=== PATIENT | male | born 1980 | race Caucasian/White ===

== ENCOUNTER 2018-09-22 06:18 | Day surgery (SDC) | payer OTHER ==
[2018-09-22] MEDS ORDERED: LACTATED RINGERS 1,000 ML IV ONE (07:09)
[2018-09-22] MEDS ORDERED: ENOXAPARIN SODIUM 40 MG/0.4 ML DISP.SYRIN SQ ONE ×2 (07:09→08:48)
[2018-09-22] MEDS ORDERED: FAMOTIDINE 20 MG/2 ML VIAL ONE ×2 (07:11→08:48)
[2018-09-22 08:16] LABS: BASOPHILS % 0.4 (0.0-1.5); EOSINOPHILS % 1.7 % (0.0-6.8); MEAN CORPUSCULAR HEMOGLOBIN 28.6 pg (28.0-34.0); MONOCYTES % 5.3 % (0.0-11.0); NEUTROPHILS # 4.5 # k/uL (1.4-7.7)
[2018-09-22 08:42] LABS: eGFR (Non-African) > 60
[2018-09-22] MEDS ORDERED: SUGAMMADEX SODIUM 200 MG/2 ML VIAL IV ONE (08:48)
[2018-09-22] MEDS ORDERED: DEXAMETHASONE SODIUM PHOSPHATE 10 MG/ML VIAL ONE (08:48)
[2018-09-22] MEDS ORDERED: PHENYLEPHRINE HCL 10 MG/1 ML ONE (08:48)
[2018-09-22] MEDS ORDERED: SUCCINYLCHOLINE CHLORIDE 20 MG/ML 10ML VIAL ONE (08:48)
[2018-09-22] MEDS ORDERED: PROPOFOL 200 MG/20 ML VIAL IV ONE (08:48)
[2018-09-22] MEDS ORDERED: FENTANYL CITRATE/PF 250 MCG/5 ML INJ. ONE (08:48)
[2018-09-22] MEDS ORDERED: LIDOCAINE HCL 2% PF 100MG/5ML VIAL IJ ONE (08:48)
[2018-09-22] MEDS ORDERED: ROCURONIUM BROMIDE 10 MG/ML 5ML VIAL ONE (08:48)
[2018-09-22] MEDS ORDERED: KETOROLAC TROMETHAMINE 30 MG/1ML VIAL ONE (08:48)
[2018-09-22] MEDS ORDERED: SEVOFLURANE 250 ML LIQUID IH ONE (08:48)
[2018-09-22] MEDS ORDERED: fentaNYL CITRATE/PF 100 MCG/2 ML INJ. ONE ×2 (08:48→11:09)
[2018-09-22] MEDS ORDERED: ONDANSETRON HCL/PF 4 MG/ 2ML VIAL ONE ×3 (08:48→11:28)
[2018-09-22] MEDS ORDERED: CLINDAMYCIN PHOSPHATE 900 MG/6 ML VIAL ONE (08:48)
[2018-09-22] MEDS ORDERED: MIDAZOLAM HCL 2 MG/2 ML VIAL ONE (08:48)
[2018-09-22] MEDS ORDERED: LACTATED RINGERS 1,000 ML IV.SOLN IV ONE ×2 (08:48)
== END 2018-09-22 11:49 | disposition other institution (70) ==
LOC: OPSURG 06:18
PROVIDERS: ATTEND Surgery
DX: E66.01 Morbid (severe) obesity due to excess calories (principal); Z68.44 Body mass index [BMI] 60.0-69.9, adult; E11.9 Type 2 diabetes mellitus without complications; I10 Essential (primary) hypertension; G47.33 Obstructive sleep apnea (adult) (pediatric); E78.2 Mixed hyperlipidemia; Z79.4 Long term (current) use of insulin; Z79.01 Long term (current) use of anticoagulants
CPT/HCPCS: 36415; 43235; 43775; 80048; 85025; 85610; J0330; J1650; J1885; J2001; J2250; J2370; J2405; J2704; J3010; J7120; S0028; J2307

== ENCOUNTER 2018-09-22 11:50 | Inpatient (IN) | payer OTHER ==
[2018-09-22] MEDS ORDERED: OXYCODONE HCL 5 MG/5 ML SOLN UD CUP PO PRN (11:58)
[2018-09-22] MEDS ORDERED: MORPHINE SULFATE 4 MG/ML VIAL IVP PRN (11:58)
--- NOTE | 2018-09-22 12:22 | History and Physical Report ---
History of Present Illnes - History of Present Illness Reason for Visit: S/P Gastric Sleeve History of Present Illness: Patient is a 38-year-old male whom is morbidly obese and has struggled with his weight for most of his adult years. Patient was evaluated by cardiology and was found to have some inferior ischemia on stress testing. He underwent left heart catheterization which was normal and stress test was a false positive. Cardiology gave the ok to continue with surgery. He was also on Xarelto for a DVT 2 years ago and has been substituting with Lovenox for present surgery. Patient and surgeon decided to proceed with gastric sleeve procedure. Procedure went well without complications- patient will be admitted and monitored s/p surgical intervention. - Past Medical History Cardiac: HTN Pulmonary: Sleep Apnea Gastrointestinal: GERD Heme/Onc: Other (Factor 5 deficiency, DVT) Endocrine: Diabetes, Hypothyroidism, obesity - Past Surgical History Past Surgical History: Other (Knee surgery and shoulder surgery) - Past Family History Mother Family History: Hypertension, Other (obese) Father Family History: Hypertension - Past Social History Smoke: No Alcohol: None Drugs: None Lives: With Family Domestic Violence: Negative - Health Maintenance Health Maintenance: Influenza Vaccine, Pneumococcal Vaccine Influenza Vaccine: Current for this Influenza Season Pneumonia Vaccine: Yes Resuscitation Status: Resusciation Status Resuscitation Status Full Code - Unable to Obtain History Unable to Obtain: No Review of Systems - Review of Systems Constitutional: negative: Fever, Chills Eyes: negative: pain, vision change ENT: negative: Ear Pain, Nose Pain, Throat Pain Respiratory: negative: Cough, Shortness of Breath Cardiovascular: negative: Chest Pain, Light Headedness Gastrointestinal: Nausea (moderate), Abdominal Pain (minimal abd. pain). negative: Vomiting Genitourinary: negative: Dysuria Musculoskeletal: negative: Shoulder Pain, Back Pain Skin: negative: Rash Neurological: negative: Weakness, Confusion - Medications/Allergies Allergies/Adverse Reactions: Allergies Allergy/AdvReac Type Severity Reaction Status Date / Time Penicillins Allergy Verified 09/22/18 11:58 Home Medications: Home Medications Atorvastatin Calcium 10 mg PO D 09/22/18 Enoxaparin Sodium [Lovenox] 60 mg SQ Q12 09/22/18 Furosemide [Lasix] 40 mg PO DAILY 09/22/18 Levothyroxine Sodium 75 mcg PO D 09/22/18 Lisinopril [Zestril] 40 mg PO D 09/22/18 Metformin HCl 1,000 mg PO D 09/22/18 Rivaroxaban [Xarelto] 20 mg PO D 09/22/18 Semaglutide [Ozempic] 0.25 mg SQ WEEKLY AT 1600 09/22/18 amLODIPine BESYLATE [Norvasc] 5 mg PO D 09/22/18 Current Inpatient Medications: Current Inpatient Medications Enoxaparin Sodium (Lovenox) 40 mg SQ QD [facility] Stop: 10/07/18 11:59 Famotidine (Pepcid) 20 mg IVP BID [facility] Stop: 09/26/18 20:59 Promethazine HCl 25 mg/ Sodium (Chloride) 51 mls @ 200 mls/hr IV Q6 PRN PRN Reason: Nausea / Vomiting Stop: 09/26/18 11:57 Sodium Chloride (Normal Saline) 1,000 mls @ 150 mls/hr IV Q8H [facility] Clindamycin Phosphate 600 mg/ (PREMIX BAG) 50 mls @ 50 mls/hr IV Q8H [facility] Stop: 09/23/18 01:59 Ketorolac Tromethamine (Toradol) 30 mg IVP Q6 PRN PRN Reason: For Mild Pain Stop: 09/26/18 11:57 Miscellaneous (Chem Sticks) 1 each MC Q6H [facility] Morphine Sulfate (Morphine Sulfate) 2 mg IVP Q2 PRN PRN Reason: Mod.Pain-If unable to take PO Stop: 09/26/18 11:57 Ondansetron HCl (Zofran 4 Mg/2 Ml) 4 mg IVP Q6H PRN PRN Reason: Nausea / Vomiting Stop: 09/26/18 11:57 Oxycodone HCl (Oxycodone Soln) 5 mg PO Q6H PRN PRN Reason: Pain 5-7 Exam - Exam Vital Signs: Vital Signs (72 hours) 09/22/18 11:52 Temperature 97.2 F L Pulse Rate [ 89 Left] Respiratory 18 Rate Blood Pressure 138/83 [Right Arm] O2 Sat by Pulse 93 Oximetry General: Alert, Oriented to Person, Oriented to Place, Oriented to Time, Mild distress (due to nausea), Morbidly Obese HEENT: Atraumatic, PERRLA, Mouth Mucous membr. moist/Point Place, Nose Mucous membr. moist/[place] Place Neck: Normal Range of Motion Carotids: No Bruit Lungs: Clear to auscultation, Normal air movement Cardiovascular: Regular rate, Normal S1, Normal S2 Abdomen: Soft, Decreased Bowel Sounds Integumentary: Normal, Point Place, Warm, Dry, Other (incisions intact/dry) Extremities: Normal pulses, No tenderness/swelling Neurological: Strength Equal Bilat, Normal tone, Sensation intact Psych/Mental Status: Mental status NL, Mood NL, Appropriate Affect Assessment/Plan - Assessment/Plan (1) S/P gastric surgery Status: Acute Current Visit: Yes Assessment: Incisions are without redness/erythema, legs are without tenderness/pain, LCTA Plan: Will monitor incision sites, patient will be placed on Lovenox daily, frequent ambulation and SCDs while in bed, patient will use incentive spirometer to prevent resp. infections, will start PPI, and will give IVFs until patient can tolerate PO (2) Morbid obesity Status: Acute Current Visit: Yes Assessment: S/p gastric sleeve (3) Hypertension Status: Acute Current Visit: Yes Qualifiers: Hypertension type: essential hypertension Qualified Code(s): I10 - Essential (primary) hypertension Assessment: Will monitor blood pressures closely Plan: Will monitor blood pressures closely and introduce medications back as needed (4) Type 2 diabetes mellitus Status: Acute Current Visit: Yes Qualifiers: Diabetes mellitus watermelon inspector insulin use: with retirement use Diabetes mellitus complication status: with hyperglycemia Qualified Code(s): E11.65 - Type 2 diabetes mellitus with hyperglycemia; 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 Assessment: Will check blood sugars regularly and monitor for sx's of hypo/hyperglycemia Plan: Will administer diabetic meds as needed (5) DVT (deep venous thrombosis) Status: Acute Current Visit: Yes Qualifiers: DVT location: lower extremity Assessment: DVT was 2 years ago and has been on xarelto- pt has been using Lovenox prior to surgery Plan: Will continue lovenox, frequent ambulation, and SCDs while in bed (6) GERD (gastroesophageal reflux disease) Status: Acute Current Visit: Yes Qualifiers: Esophagitis presence: without esophagitis Qualified Code(s): K21.9 - Gastro-esophageal reflux disease without esophagitis Assessment: stable on home meds Plan: Will give Pepcid IV BID (7) Hypothyroid Status: Acute Current Visit: Yes Assessment: Stable on home medications Plan: Will hold medication at this time and introduce medication as needed VTE Assessment - RISK FACTOR SCORE VTE RISK FACTOR SCORES: AGE 40-60 YEARS, OBESITY, MAJOR SURGERY/ANESTHESIA TIME > 1 HOUR, OTHER (DVT 2 years ago) - RISK VTE HIGH RISK: SCORE OF 3-4 (RISK PROXIMAL DVT 4-8%) PROPHYLAXIS NEEDED (Lovenox daily, frequent ambulation, sCDs while in bed)
[2018-09-22] MEDS: 0.9 % SODIUM CHLORIDE 1,000 ML IV SCH ×2 (12:24→19:30)
[2018-09-22] MEDS ORDERED: 0.9 % SODIUM CHLORIDE 50 ML IV ONE ×2 (13:16→20:41)
[2018-09-22] MEDS ORDERED: PROMETHAZINE HCL 25 MG/ML VIAL ONE (13:16)
[2018-09-22] MEDS: PROMETHAZINE HCL 25 MG in 0.9 % SODIUM CHLORIDE 50 ML IV PRN ×2 (13:22→22:38)
[2018-09-22 13:39] VITALS: BMI 65.4
[2018-09-22] MEDS: ONDANSETRON HCL/PF 4 MG/ 2ML VIAL IVP PRN (17:11)
[2018-09-22] MEDS: KETOROLAC TROMETHAMINE 30 MG/1ML VIAL IVP PRN (17:14)
[2018-09-22] MEDS: CLINDAMYCIN PHOSPHATE/D5W 600 MG in PREMIX BAG 1 BAG IV SCH (17:26)
[2018-09-22] MEDS ORDERED: CLINDAMYCIN PHOSPHATE/D5W 50 ML IV ONE (20:40)
[2018-09-22] MEDS: FAMOTIDINE 20 MG/2 ML VIAL IVP SCH (21:30)
[2018-09-23] MEDS: CLINDAMYCIN PHOSPHATE/D5W 600 MG in PREMIX BAG 1 BAG IV SCH (00:10)
[2018-09-23] MEDS: 0.9 % SODIUM CHLORIDE 1,000 ML IV SCH ×3 (02:40→22:20)
[2018-09-23] MEDS: ONDANSETRON HCL/PF 4 MG/ 2ML VIAL IVP PRN ×2 (08:34→18:20)
[2018-09-23] MEDS: FAMOTIDINE 20 MG/2 ML VIAL IVP SCH ×2 (08:37→21:29)
--- NOTE | 2018-09-23 09:56 | Inpatient Progress Note ---
Subjective - Required Recertification Statement I anticipate X number of days because-include discharge plan: 1 - Review of Systems Subjective: Patient feels ok. Drank an orange soda and got some pain in LUQ. Better now. Passing gas. Objective - Exam Vitals and I&O: Vital Signs Temp 97.8 F 09/23/18 09:07 Pulse 73 09/23/18 09:07 Resp 18 09/23/18 09:07 BP 156/82 09/23/18 09:07 Pulse Ox 97 09/23/18 09:07 Intake & Output 09/22/18 09/22/18 09/23/18 11:59 23:59 11:59 Intake Total 1090 270 Output Total 300 500 Balance 790 -230 Weight 200.9 kg 200.9 kg Intake: IV 1000 150 Right Hand 1000 150 Oral 90 120 Output: Urine 300 500 Other: Voiding Method Toilet Toilet # Voids 1 0 General: Alert, Oriented to Person, Oriented to Place, Oriented to Time, Cooperative Lungs: Clear to auscultation, Normal air movement, Speaks full Sentences Cardiovascular: Regular rate Abdomen: Normal bowel sounds, Soft, No tenderness, Other (Minimal old blood on bandage in LUQ.) Assessment/Plan - Assessment/Plan (1) H/O deep venous thrombosis Status: Acute Current Visit: Yes Plan: Patient has a h/o Factor V Leiden. Will increase the lovenox to preop dose of 60 mg bid - lower dose due to risk of bleeding. SCD's. Ambulation. Restart xarelto as outpatient. IF patient has lovenox left at home he should use it until gone then restart xarelto. (2) Factor 5 Leiden mutation, heterozygous Status: Acute Current Visit: Yes (3) Hypertension Status: Acute Current Visit: Yes Qualifiers: Hypertension type: essential hypertension Qualified Code(s): I10 - Essential (primary) hypertension (4) Hypothyroid Status: Acute Current Visit: Yes Qualifiers: Hypothyroidism type: unspecified Qualified Code(s): E03.9 - Hypothyroidism, unspecified Plan: REstart levothyroxine tomorrow. 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 Will likely be able to d/c off this med with close follow up.
[2018-09-23] MEDS ORDERED: ENOXAPARIN SODIUM 40 MG/0.4 ML DISP.SYRIN SQ SCH (12:00)
[2018-09-23] MEDS: ENOXAPARIN SODIUM 60 MG/0.6 ML DISP.SYRIN SQ SCH ×2 (12:48→21:28)
[2018-09-23] MEDS: KETOROLAC TROMETHAMINE 30 MG/1ML VIAL IVP PRN (18:20)
[2018-09-24] MEDS: 0.9 % SODIUM CHLORIDE 1,000 ML IV SCH ×2 (04:35→15:17)
[2018-09-24 06:34] VITALS: BP 143/57
[2018-09-24] MEDS ORDERED: LEVOTHYROXINE SODIUM 25 MCG TABLET PO SCH (07:00)
--- NOTE | 2018-09-24 09:04 | Discharge Summary ---
Discharge Summary - Discharge Sumary History of Present Illness: Patient is a 38-year-old male whom is morbidly obese and has struggled with his weight for most of his adult years. Patient was evaluated by cardiology and was found to have some inferior ischemia on stress testing. He underwent left heart catheterization which was normal and stress test was a false positive. Cardiology gave the ok to continue with surgery. He was also on Xarelto for a DVT 2 years ago and has been substituting with Lovenox for present surgery. Patient and surgeon decided to proceed with gastric sleeve procedure. Condition at Discharge: Stable Home Medications: Ambulatory Orders Medication Instructions Recorded Atorvastatin Calcium 10 mg PO D 09/22/18 Enoxaparin Sodium [Lovenox] 60 mg SQ Q12 09/22/18 Furosemide [Lasix] 40 mg PO DAILY 09/22/18 Levothyroxine Sodium 75 mcg PO D 09/22/18 Lisinopril [Zestril] 40 mg PO D 09/22/18 Metformin HCl 1,000 mg PO D 09/22/18 Rivaroxaban [Xarelto] 20 mg PO D 09/22/18 Semaglutide [Ozempic] 0.25 mg SQ WEEKLY AT 1600 09/22/18 amLODIPine BESYLATE [Norvasc] 5 mg PO D 09/22/18 Consultations this Visit: None Procedures this Visit: Other (Gastric Sleeve) Allergies/Adverse Reactions: Allergies Allergy/AdvReac Type Severity Reaction Status Date / Time Penicillins Allergy Verified 09/22/18 11:58 Patient Problems: Current Active Problems Problem Status Onset DVT (deep venous thrombosis) Acute Factor 5 Leiden mutation, heterozygous Acute GERD (gastroesophageal reflux disease) Acute H/O deep venous thrombosis Acute Hypertension Acute Hypothyroid Acute Morbid obesity Acute S/P gastric surgery Acute Type 2 diabetes mellitus Acute Discharge Summary: Patient had gastric sleeve placed on hospital Day #1. His postoperative course was uncomplicated. He was able to ambulate and tolerated broth well. His Xarelto will continue to be held until Wednesday and then he will restart it at that time (for factor V Leiden and history of DVT). Follow up will be with [facility] office on 09/29/18 at 10:30 am.
[2018-09-24] MEDS: ENOXAPARIN SODIUM 60 MG/0.6 ML DISP.SYRIN SQ SCH (10:19)
[2018-09-24] MEDS: FAMOTIDINE 20 MG/2 ML VIAL IVP SCH (10:19)
== END 2018-09-24 12:05 | disposition home or self-care (01) | DRG 641 ==
LOC: SOUTH 11:50
PROVIDERS: ADMIT Nurse Practitioner Family; ATTEND Nurse Practitioner Family
DX: E66.01 Morbid (severe) obesity due to excess calories (principal); E11.65 Type 2 diabetes mellitus with hyperglycemia; I10 Essential (primary) hypertension; K21.9 Gastro-esophageal reflux disease without esophagitis; E03.9 Hypothyroidism, unspecified; D68.51 Activated protein C resistance; Z79.4 Long term (current) use of insulin
CPT/HCPCS: 99222; 99231; 99238; J1650; J1885; J2405; J2550; J7030